=== PATIENT | male | born 1985 | race African-American/Black ===

== ENCOUNTER 2022-08-17 15:38 | Emergency (ER) | payer MEDICAID ==
[~2022-08-17] VITALS: Ht 177.8 cm; Wt 77.3 kg
[2022-08-17 15:42] VITALS: BP 148/77
[2022-08-17] MEDS ORDERED: iohexol 300mg/ml 100ml inj. ONE (16:56)
[2022-08-17] MEDS ORDERED: DOXYCYCLINE 100MG CAPSULE PO STA (18:07)
[2022-08-17] MEDS ORDERED: dexamethasone sod phosphate 10mg/ml inj IM STA (18:07)
[2022-08-17] MEDS ORDERED: diphenhydrAMINE 25mg capsule PO ONE (18:10)
[2022-08-17] MEDS ORDERED: CefTRIAXone 1000mg IM Kit (w/lidocaine diluent) IM ONE (18:10)
[2022-08-17] MEDS ORDERED: DEXA4TAB79 PO (18:15)
[2022-08-17] MEDS ORDERED: CEPH250T PO (18:15)
[2022-08-17] MEDS ORDERED: DOXY100C76 PO (18:15)
[2022-08-17] MEDS ORDERED: LORA10TA61 PO (18:15)
== END 2022-08-17 18:47 | disposition home or self-care (01) ==
LOC: ER 15:39
DX: L03.211 Cellulitis of face (principal); L03.221 Cellulitis of neck; F17.200 Nicotine dependence, unspecified, uncomplicated
CPT/HCPCS: 70491; 96372; 99285; J0696; J1100; J3490; Q0163; Q9967

== ENCOUNTER 2023-07-13 19:11 | Emergency (ER) | payer MEDICAID ==
[~2023-07-13] VITALS: Ht 177.8 cm; Wt 93.9 kg
[~2023-07-13 19:11] MED LIST: DEXA4TAB79 PO; LORA10TA61 PO
[2023-07-13 19:22] VITALS: BP 141/63; PULSE 61; RESP 16; TEMP 98.6; O2SAT 97
[2023-07-13] MEDS ORDERED: dexamethasone sod phosphate 10mg/ml inj PO STA (19:25)
[2023-07-13] MEDS ORDERED: CEFD300C3 PO (19:27)
== END 2023-07-13 20:02 | disposition home or self-care (01) ==
LOC: ER 19:12
DX: J35.1 Hypertrophy of tonsils (principal); Z79.899 Other long term (current) drug therapy
CPT/HCPCS: 99283; J1100